=== PATIENT | male | born 1995 | race American Indian/Alaskan Native ===

== ENCOUNTER 2018-05-17 14:28 | Emergency (ER) | payer MEDICAID ==
[2018-05-17] MEDS ORDERED: TYLENOL ONE (14:49)
[2018-05-17 14:50] VITALS: BP 110/83
[2018-05-17] MEDS ORDERED: TYLENOL PO ONE (14:51)
== END 2018-05-17 19:00 | disposition left against medical advice (07) ==
LOC: ED 14:28
DX: M54.89 Other dorsalgia (principal); Z53.21 Procedure and treatment not carried out due to patient leaving prior to being seen by health care provider